=== PATIENT | male | born 1975 | race African-American/Black ===

== ENCOUNTER 2019-03-10 13:19 | Outpatient (CLI) | payer OTHER ==
--- NOTE | 2019-03-11 06:03 | MRI Report ---
Reason: LOW BACK PAIN Procedure Date: 03/10/2019 Accession Number: [id number] / [id number] Procedure: MRI - Lumbar Spine W/O CPT Code: FULL RESULT: EXAM: MRI LUMBAR SPINE WITHOUT CONTRAST EXAM DATE: 03/10/2019 02:10 PM. CLINICAL HISTORY: LOW BACK PAIN. Pain and numbness extending into the right leg. COMPARISON: None. TECHNIQUE: Multiplanar, multisequence T1-weighted and fluid-sensitive sequences of the lumbar spine from T12 to S1 without contrast. Other: None. FINDINGS: Spinal Canal: The conus terminates at L1. The conus medullaris and cauda equina are unremarkable. Alignment: No scoliosis or spondylolisthesis. Bone Marrow: Five [id number] lumbar vertebral bodies are assumed. No gross fractures or bone lesions. No bone marrow replacement. Disk Levels/Facets: T12-L1: Unremarkable. L1-L2: The disk is intact. The canal and the foramina are widely patent. L2-L3: The disk is intact. The canal and the foramina are widely patent. L3-L4: The disk is desiccated and narrowed. There is an anterior disk protrusion with minimal surrounding osteophytes. There is no significant posterior disk protrusion. The canal and the foramina are widely patent. L4-L5: The disk is intact. The canal and the foramina are widely patent. L5-S1: The disk is degenerated. There is a small right posterior paracentral disk protrusion with minimal extruded disk material. There is contiguity and mass-effect on the right S1 descending nerve root in the lateral recess. There is no central canal stenosis nor significant foraminal stenosis. Musculature: Normal. No edema or fatty atrophy. Other: The partially visualized retroperitoneum is unremarkable. IMPRESSION: 1. Right posterior paracentral disk protrusion with small amount of extruded disk material contiguous with and causing mass-effect on the right S1 descending nerve root in the lateral recess. 2. Degenerated L3-L4 disk. Comment: The following findings are so common in adults without low back pain that while we report their presence, they must be interpreted with caution and in the context of the clinical situation. (Reference Meccak et al, Spine 2001) Prevalence of findings in patients without low back pain: Disk degeneration (any evidence): 92% Disk desiccation/T2 signal loss: 83% Disk height loss: 56% Disk bulge: 64% Disk protrusion: 32% Annular tear/high intensity zone: 38% RADIA
== END 2019-03-10 13:20 | disposition home or self-care (01) ==
LOC: DI 13:19
DX: M51.36 Other intervertebral disc degeneration, lumbar region (principal); M51.27 Other intervertebral disc displacement, lumbosacral region; M51.37 Other intervertebral disc degeneration, lumbosacral region; M51.26 Other intervertebral disc displacement, lumbar region
CPT/HCPCS: 72148

== ENCOUNTER 2020-04-06 09:27 | Outpatient (CLI) | payer OTHER ==
[2020-04-06 10:50] VITALS: BP 124/84
--- NOTE | 2020-04-06 10:50 | SLEEP CARE CONSULTATION ---
Information from patient questionnaire entered by Lety Liu. I have reviewed and concur with the information entered by Lety Liu. This document represents the service I personally performed and the decisions made by me, Annabel Ortez ARNP. History of Present Illness Service Date and Time: 04/06/2020926 Reason for Visit: New patient Chief Complaint: reports: Unrefreshed sleep, Snoring (occasionally wake him up), Excessive daytime sleepiness, Observed pauses in breathing, Fatigue, Frequent awakenings at night, Other (Headaches in the morning and during the day) Duration of Symptoms: years Usual bedtime: 10-11 pm Time it takes to fall asleep: 2 min Snores at night: Yes Observed to quit breathing while asleep: Yes Sleeps alone due to snoring: No Number of times waking at night: 4 Reasons for waking at night: reports: Snoring. denies: Choking, Gasping for air, Pain, Bathroom Toss, Turn, or Twitch while sleeping: Yes Recalls having dreams: No Usually gets out of bed at: 5 am Feels refreshed in the morning: No Morning headache: Yes (DELEON 4 times a week; resolve by 11 after food and coffee) Sleepy or fatigued during the day: Yes Ever fallen asleep while driving: Yes Takes day naps: Yes Dreams during day naps: No Prior sleep studies: Yes Additional HPI information: He has had episodes of dreaming of not being able to breathe about 3 times a month last July/August, then tapered off about October. It has happened many times over the years since childhood, comes and goes. He feels he is conscious at the time and has to wake himself up by moving his legs. He has had 2 previous studies done, one in [place] and one in [place]. He was set up with an oral appliance that he states did help for a while but he feels the effectiveness has reduced. He also states he only uses this occasionally when his elbows him during the night for his snoring. He does experience headaches 4 times a week that usually resolve by 11 AM after eating and drinking coffee. - Parasomnia Symptoms Ever been unable to move upon waking from sleep: Yes (Jul/Aug frequent, then tapered off around Oct) Walks in sleep: No Talks in sleep: No Ever acted out dreams in sleep: Yes Ever felt weak in the knees when startled or emotional: Yes Bothered by creepy, crawly, restless sensations in legs: No Problems with memory or concentration: Yes Subjective Initial [place] Sleepiness Scale score: 20 (in 2020) Past Medical History Past Medical History: reports: Other (high cholesterol ). denies: Hypertension, Claustrophobia, Congestive Heart Failure, Diabetes, Stroke, Coronary Heart Disease, Insulin resistance, Arrythmia, Hypothyroidism, Anxiety, Depression, GERD Social History The patient's occupation is a Active . Patient is and lives in [place]. Have you smoked in the past 12 months: No Alcohol use: Yes Alcohol amount and frequency: occasionally Caffeine use: Yes Caffeine amount and frequency: occasionally Family History Family history of sleep disordered breathing: Yes (mom, dad, uncle) Family Hx Sleep Apnea: Mother: Snoring, Other: Sleep apnea - Treated (uncle) Allergies and Home Medications Drug allergies reviewed: Yes (NKDA) Home medication list reviewed: Yes (simvastatin, claritin) Review of Systems Weight gain over past 5 years: 15 Cardiovascular: denies: high blood pressure, palpitations, chest pain, irregular heart rate or pulse, leg or foot swelling, have to sleep sitting up Respiratory: denies: shortness of breath, wheeze, chronic cough Gastrointestinal: reports: heartburn, diarrhea Urinary: reports: urgency Neurological: reports: headaches. denies: seizure, head trauma, disorientation, speech dysfunction, gait or balance problems Psychiatric: denies: anxiety, depression, mood disorder Ear/Nose/Throat: reports: nasal congestion, sinus problems, nose bleeds, tonsillectomy, wisdom teeth removed. denies: dry mouth/throat, hoarseness, injury to nose Endocrine: denies: thyroid disease, sluggishness, too hot or cold, excessive thirst, increased appetite Musculoskeletal: denies: joint pain, back pain, muscle pain or cramping, mobility problems Immunologic: reports: sneezing, itching, allergies to food or environment (seasonal allergies) Physical Exam Blood Pressure: 124/84 Cuff size: long Heart Rate: 73 O2 Saturation: 98 Height: 5 ft 7 in Weight: 170 lb (gained 15 pound, muscle mass at first now a spare tire) Body Mass Index: 26.6 BMI Classification: Overweight Neck circumference: 16 (inches) HEENT: No craniofacial malformation Nostrils: patent to airflow Turbinates: boggy Septum: midline Mouth and throat: normal Soft palate: normal Hard palate: normal Uvula visualization: 100% Mallampati Class I Tongue: enlarged in size with teeth hensley on lateral edges Tonsils: absent bilaterally (uvula and tonsils removed in 1999) Chin and jaw: normal size and position Neck: normal w/o lymphadenopathy or thyromegaly Heart: regular rate and rhythm Lungs: clear bilaterally Impression and Plan 1. Suspected Obstructive Sleep Apnea-Hypopnea Syndrome, as suggested by a history of loud and irregular snoring, observed cessation of breath while asleep, morning headache, frequent awakening during the night, unrefreshed sleep, cognitive impairment, and excessive daytime sleepiness. Patient has had two previous studies. He brings in the one done in [place] and it does not show sleep apnea but does have 127 episodes of PLMS. He did not bring in his [place] study and this was requested for our records. He continues to have symptoms consistent with sleep apnea and I have ordered a new study to again rule this out due to recent weight gain. I recommend proceeding to polysomnography to confirm the diagnosis and to assess severity. If the patient has significant sleep disordered breathing, a manual CPAP titration study will also be performed to find the optimal treatment pressure. I informed the patient of what the sleep studies involve and after so me discussion, obtained agreement to proceed. The pathophysiology of obstructive sleep apnea-hypopnea syndrome was discussed with the patient and health risks of cardiovascular and cerebrovascular disease if not treated. Risks of drowsy driving discussed in detail and patient advised to avoid long distance driving and to test puller at the first sign of drowsiness. Patient agreed to plan. * Schedule polysomnography +- manual CPAP titration study and return in 1-2 weeks after the study to discuss result and initiate therapy. * Avoid long distance driving or driving when feeling sleepy. * Avoid alcohol, sedative and muscle relaxant around bedtime. * Obtain and bring [place] study to office for our records. * Use oral appliance for snoring/sleep more regularly. * Attempt to lose weight. * Review instructions provided by trained office staff on how to prepare for the sleep study. * Return for follow-up after sleep study completed. Visit Type: In Office Time Spent with Patient (minutes): 30 Provider Statement: I spent 100% of the Face to Face Visit with the patient with greater than 50% spent counseling the patient and coordination of care.
== END 2020-04-06 09:28 | disposition home or self-care (01) ==
LOC: SC 09:27
PROVIDERS: ATTEND Nurse Practitioner Family
DX: R06.83 Snoring (principal); R06.81 Apnea, not elsewhere classified; R51 Headache; G47.8 Other sleep disorders; R41.89 Other symptoms and signs involving cognitive functions and awareness; G47.10 Hypersomnia, unspecified; E66.3 Overweight; Z68.26 Body mass index [BMI] 26.0-26.9, adult
CPT/HCPCS: 99204; 99212

== ENCOUNTER 2020-04-26 19:24 | Outpatient (CLI) | payer OTHER | END 2020-04-26 19:25 | disposition home or self-care (01) | LOC: SC 19:24 | PROVIDERS: ATTEND Internal Medicine Pulmonary Disease | DX: G47.33 Obstructive sleep apnea (adult) (pediatric) (principal); G47.61 Periodic limb movement disorder; E66.3 Overweight; Z68.26 Body mass index [BMI] 26.0-26.9, adult | CPT/HCPCS: 95810 ==

== ENCOUNTER 2020-05-05 13:09 | Outpatient (CLI) | payer OTHER ==
--- NOTE | 2020-05-05 13:49 | SLEEP CARE CONSULTATION ---
Information from patient questionnaire entered by Lety Liu. I have reviewed and concur with the information entered by Lety Liu. This document represents the service I personally performed and the decisions made by , Annabel Ortez ARNP. History of Present Illness Service Date and Time: 05/05/2020 1309 Initial [place] Sleepiness Scale score: 20 (in 2020) Current [place] Sleepiness Scale score: 15 Additional HPI information: SIA HENDRICKS returns for follow up and results of the recently performed polysomnography. He was found to have mild obstructive sleep apnea with an AHI of 11.5 and yohana oxygen saturation of 80%. His supine AHI was 15.4 and his non- supine AHI 9.32. He had mild periodic leg movements that did not fragment his sleep. I explained the pathophysiology behind obstructive sleep apnea. We then spent quite a bit of time discussing different treatment options. For mild obstructive sleep apnea, surgery and oral appliance are alternatives to nasal CPAP therapy but in moderate or severe cases, nasal CPAP is the most effective and reliable treatment. Because apnea is primarily in supine position, then positional management therapy could be effective. Methods discussed such as positioning with pillows, using a T-shirt with tennis balls in the back, and shown commercial products that have a pillow format on back to prevent supine sleep. I reviewed the impact of weight changes on sleep apnea and strongly recommended losing weight. After some discussion, the patient opted to go with the nasal CPAP therapy. Nasal autoCPAP set at [id number] will be ordered with rationale explained. A manual titration study will be ordered if unable to find optimal pressure with office adjustments. I explained how CPAP machine works with sample devices [employer] Dream[employer] and ethology [id number] and what to expect when using the machine. Using CPAP every night in order to get used to it was emphasized. Patient advised to put CPAP mask on before getting into bed so as not to fall asleep without CPAP. To assist acclimation to CPAP use, it could also be used for a short time during day while reading or watching TV. The patient was instructed to call the CPAP supplier to discuss any mechanical problem that may occur. If the mask given is uncomfortable or is difficult to keep on through the night even with adjustment, contact the CPAP supplier as many will replace with another mask style if notified before 30 days. If snoring or perceives is not getting enough air or too much air from the machine, notify this office. [facility] patient education PAP tips reviewed and given to patient. Patient counseled not drink alcohol less than 4 hours before bedtime as it can increase snoring and apnea. Patient was cautioned about risks of drowsy driving until sleepiness symptoms resolve. Sleep Study - Results Type of Sleep Study: Polysomnography Prior sleep studies: Yes Polysomnography/Home Sleep Study results: IMPRESSION: The quality of the study is good. The patient had normal sleep efficiency. Except for mild sleep fragmentation, the sleep architecture was normal as well. Respiratory monitoring showed mild obstructive sleep apnea-hypopnea (AHI = 11.5) associated with frequent arousals, oxyhemoglobin desaturation and mild hypoxia (yohana oxygen saturation of 80%). The respiratory events occurred mainly during supine sleep (supine AHI = 15.4; non-supine = 9.32). Snore was loud in intensity. There was mild periodic leg movement of sleep not contributing to the sleep fragmentation. Cardiac rhythm was normal sinus rhythm without significant arrhythmia. No abnormal behavior (parasomnia) observed during the night. Allergies and Home Medications Drug allergies reviewed: Yes (NKDA) Home medication list reviewed: Yes (no changes) Review of Systems Review of systems same as previous: Yes (no changes) Physical Exam Heart Rate: 81 O2 Saturation: 98 Height: 5 ft 7 in Weight: 169 lb Body Mass Index: 26.4 BMI Classification: Overweight Impression and Plan 1. Obstructive Sleep Apnea-Hypopnea Syndrome, mild, with lowest oxygen saturation of 80%. Patient has tried oral appliances for snoring that did not work for him and he declined this treatment option as well as positional therapy (not going to be as effective due to non-supine AHI is elevated at 9.32) and surgery (he has had a tonsillectomy). He would like to try the CPAP therapy. Obviously this is the cause of the patients symptoms of unrefreshed sleep, morning headaches and excessive daytime sleepiness. Positive pressure therapy could benefit hypertension and heart arrhythmias. As mentioned above, the patient will be started on nasal autoCPAP therapy with pressure set at 4-15 cmH2 O. Compliance guidelines also reviewed. A copy of compliance guidelines will be given for reference at check out. Because the apnea is more severe supine, I instructed to avoid sleeping supine using pillow positioning until able to start CPAP use. * Nasal auto CPAP therapy, pressure at 4-15 cm H2O. * Attempt to lose weight. * Avoid alcohol consumption near bedtime. * Avoid supine sleep until using CPAP. * The patient is again cautioned about driving until sleepiness completely resolves. * Return one month after CPAP obtained. I will assess response to therapy and compliance at that time. Visit Type: In Office Time Spent with Patient (minutes): 22 Provider Statement: I spent 100% of the Face to Face Visit with the patient with greater than 50% spent counseling the patient and coordination of care.
== END 2020-05-05 13:10 | disposition home or self-care (01) ==
LOC: SC 13:09
PROVIDERS: ATTEND Nurse Practitioner Family
DX: G47.33 Obstructive sleep apnea (adult) (pediatric) (principal); E66.3 Overweight; Z68.26 Body mass index [BMI] 26.0-26.9, adult
CPT/HCPCS: 99212; 99213

== ENCOUNTER 2020-06-15 14:13 | Outpatient (CLI) | payer OTHER ==
--- NOTE | 2020-06-15 15:07 | SLEEP CARE CONSULTATION ---
Information from patient questionnaire entered by Iron Alegre. I have reviewed and concur with the information entered by Iron Alegre. This document represents the service I personally performed and the decisions made by , Annabel Ortez ARNP. History of Present Illness Service Date and Time: 06/15/2020 1413 Previous diagnosis: Mild, Obstructive Sleep Apnea-Hypopnea Syndrome AHI: 11.5 Reason for follow up: first compliance (05/15) Equipment type: CPAP Equipment obtained from: [employer] (just awaiting first shipment) Mask style: Full face Backup mask available: No (will keep current mask when replaced) Last cushion change: 1 month Prior sleep studies: Yes Year and Where: [facility] Type of Sleep Study: Polysomnography HPI additional information: SIA HENDRICKS was diagnosed to have mild, AHI 11.5, obstructive sleep apnea- hypopnea syndrome and returned today for CPAP therapy first compliance follow- up. Sleep Study - Results Prior sleep studies: Yes CPAP Compliance Data - Data Reviewed with Patient Average duration of nightly device use: 5 h 57 min Compliance rate %: 93 Current pressure setting (cmH2O): 4-20 Average residual AHI: 3.6 Central apnea: 2.5 Obstructive apnea: 0.5 Subjective Missed days of use due to: reports: family emergency Patient concerns: denies: aerophagia, mask discomfort, air blowing in eyes, mask leak noise, condensation in mask/hose, nasal congestion, dry mouth, nose, throat, epistaxis, other Observed to snore while using device: No Current pressure setting perceived as: comfortable On therapy, patient: reports: sleeping better, awakening more refreshed, being more awake and alert during the day, more rested overall, other (no more morning headaches). denies: drowsiness while driving Initial [place] Sleepiness Scale score: 20 (in 2020) Current [place] Sleepiness Scale score: 17 Allergies and Home Medications Drug allergies reviewed: Yes (NKDA) Home medication list reviewed: Yes (no changes) Review of Systems Review of systems same as previous: Yes (no changes) Physical Exam Heart Rate: 85 O2 Saturation: 98 Height: 5 ft 7 in Weight: 172 lb Body Mass Index: 26.9 BMI Classification: Overweight Impression and Plan 1. Obstructive Sleep Apnea-Hypopnea Syndrome, mild, with good treatment compliance and good apnea control. On CPAP therapy, the patient has better sleep quality and is more rested overall. He is really liking using the CPAP because he is sleeping better and does not feel he is having any issues with the mask. 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 I will adjust his pressure to 10-15 cm H2O since his 95% average pressure was 12.2 cm H2O and his peak pressure was 14.1 cm H2O. Patient's apnea severity and rationale for treatment to reduce apnea, improve sleep quality and reduce cardiovascular and cerebrovascular events was reviewed. I also reviewed the benefit of consistent device use of CPAP for his hypertension and heart arrhythmias. * Change auto CPAP pressure to 10-15 cmH2O * Notify me if snoring with mask or feeling that the pressure is too much or too little * Attempt to lose weight * Call this office if any problems using CPAP * Return for follow up in 1-2 months, or sooner if concerns arise Visit Type: In Office Location of Provider: Office Time Spent with Patient (minutes): 20 Provider Statement: I spent 100% of the Face to Face Visit with the patient with greater than 50% spent counseling the patient and coordination of care.
== END 2020-06-15 14:14 | disposition home or self-care (01) ==
LOC: SC 14:13
PROVIDERS: ATTEND Nurse Practitioner Family
DX: G47.33 Obstructive sleep apnea (adult) (pediatric) (principal); E66.3 Overweight; Z68.26 Body mass index [BMI] 26.0-26.9, adult
CPT/HCPCS: 99212; 99213

== ENCOUNTER 2020-07-02 11:04 | Outpatient (CLI) | payer OTHER ==
--- NOTE | 2020-07-02 10:19 | SLEEP CARE CONSULTATION ---
Information from patient questionnaire entered by Mami Quiroz. I have reviewed and concur with the information entered by Mami Quiroz. This document represents the service I personally performed and the decisions made by me, Annabel Ortez ARNP. History of Present Illness Service Date and Time: 07/02/2020 1000 Previous diagnosis: Mild, Obstructive Sleep Apnea-Hypopnea Syndrome AHI: 11.5 Reason for follow up: other (2 week with pressure change) Equipment type: CPAP Equipment obtained from: [employer] (getting supplies as needed) Mask style: Full face Backup mask available: Yes (other mask) Last cushion change: 5-6 weeks Prior sleep studies: Yes Year and Where: 04/2020 [facility] Type of Sleep Study: Polysomnography HPI additional information: SIA HENDRICKS was diagnosed to have mild, AHI 11.5, obstructive sleep apnea- hypopnea syndrome and returned today for CPAP therapy 2 week pressure change follow-up. Sleep Study - Results Type of Sleep Study: Polysomnography Prior sleep studies: Yes Year and Where: [facility] CPAP Compliance Data - Data Reviewed with Patient Average duration of nightly device use: 5 hours 46 minutes Compliance rate %: 97 Current pressure setting (cmH2O): 6-12 Average residual AHI: 3.5 Subjective Patient concerns: reports: condensation in mask/hose (mask). denies: aerophagia, mask discomfort, air blowing in eyes, mask leak noise, nasal congestion, dry mouth, nose, throat, epistaxis, other Observed to snore while using device: No Current pressure setting perceived as: comfortable On therapy, patient: reports: sleeping better, awakening more refreshed, being more awake and alert during the day, more rested overall. denies: drowsiness while driving Initial [place] Sleepiness Scale score: 20 (in 2020) Allergies and Home Medications Drug allergies reviewed: Yes (NKDA) Home medication list reviewed: Yes (no changes) Review of Systems Review of systems same as previous: Yes (no changes) Physical Exam Height: 5 ft 7 in Impression and Plan 1. Obstructive Sleep Apnea-Hypopnea Syndrome, mild, with good treatment compliance and good apnea control. On CPAP therapy, the patient has better sleep quality and is more rested overall. Patient has been having some condensation in the mask in the morning. I advised him to adjust his humidity setting lower or his heated hose higher to dry the tubing/mask and reduce condensation. Patient is doing well and the new pressure is comfortable without aerophagia. He has good apnea control at AHI 3.5. 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 I encouraged him to follow up when he returns in our office. Patient's apnea severity and rationale for treatment to reduce apnea, improve sleep quality and reduce cardiovascular and cerebrovascular events was reviewed. I also reviewed the benefit of consistent device use of CPAP for hypertension and arrhythmia. * Continue auto CPAP pressure at 6-12 cmH2O * Notify me if snoring with mask or feeling that the pressure is too much or too little * Attempt to lose weight * Call this office if any problems using CPAP * Return for follow up in 6 months, or sooner if concerns arise Visit Type: Telehealth Video Video Type: iCracked Patient agrees and consents to this telehealth visit type: Yes Patient agrees to have their insurance billed: Yes Time Spent with Patient (minutes): 15 Provider Statement: I spent 100% of the Telehealth Video Call with the patient with greater than 50% spent counseling the patient and coordination of care.
== END 2020-07-02 11:05 | disposition home or self-care (01) ==
LOC: SC 11:04
PROVIDERS: ATTEND Nurse Practitioner Family
DX: G47.33 Obstructive sleep apnea (adult) (pediatric) (principal)
CPT/HCPCS: 99212

== ENCOUNTER 2021-04-14 16:16 | Outpatient (CLI) | payer OTHER ==
--- NOTE | 2021-04-14 16:40 | SLEEP CARE CONSULTATION ---
Information from patient questionnaire entered by Lety Liu. I have reviewed and concur with the information entered by Lety Liu. This document represents the service I personally performed and the decisions made by , Annabel Ortez ARNP. History of Present Illness Service Date and Time: 04/14/2021 1616 Previous diagnosis: Mild, Obstructive Sleep Apnea-Hypopnea Syndrome AHI: 11.5 (in 2019) Reason for follow up: other (9 month) Equipment type: CPAP Equipment obtained from: [employer] (getting supplies as needed) Mask style: Full face Backup mask available: Yes (old mask) Last cushion change: 2 days ago Prior sleep studies: Yes Year and Where: 2019 - [facility] Type of Sleep Study: Polysomnography HPI additional information: SIA HENDRICKS was diagnosed to have mild, AHI 11.5, obstructive sleep apnea- hypopnea syndrome and returned today for CPAP therapy nine month follow-up. CPAP Compliance Data - Data Reviewed with Patient Average duration of nightly device use: 5 hr 28 min Compliance rate %: 66 (180 days)(73 last 30 days) Current pressure setting (cmH2O): 6-12 Humidity settin Average residual AHI: 2.5 Subjective Missed days of use due to: reports: mask issues Patient concerns: reports: aerophagia (every morning has bloating and flatus). denies: mask discomfort, air blowing in eyes, mask leak noise, condensation in mask/hose, nasal congestion, dry mouth, nose, throat, epistaxis, other Observed to snore while using device: No Current pressure setting perceived as: comfortable On therapy, patient: reports: sleeping better, awakening more refreshed, being more awake and alert during the day, more rested overall. denies: drowsiness while driving Initial [place] Sleepiness Scale score: 20 (in 2020) Current [place] Sleepiness Scale score: 19 Allergies and Home Medications Home medication list reviewed: Yes (Claritin) Review of Systems Review of systems same as previous: Yes (no changes) Physical Exam Heart Rate: 80 O2 Saturation: 98 Height: 5 ft 7 in Weight: 174 lb Body Mass Index: 27.2 BMI Classification: Overweight Impression and Plan 1. Obstructive Sleep Apnea-Hypopnea Syndrome, mild, with fair treatment compliance and good apnea control. On CPAP therapy, the patient has better sleep quality and is more rested overall. Patient had 66% compliance in last 180 days but did also show 73% in last 30 days which shows good compliance. Patient needs a larger size mask but has been having difficulty getting ahold of his DME to make the change. He was advised to try again and call office if unable to get through. He has had some bloating feeling in the mornings with flatus in first hour. To reduce symptoms of aerophagia, the CPAP pressure will be reduced to 6- 11 cmH2O. Patient advised to contact me if this does not reduce symptoms or if pressure change uncomfortable. Patient was encouraged to try to lose weight to improve his overall health. Patient's apnea severity and rationale for treatment to reduce apnea, improve sleep quality and reduce cardiovascular and cerebrovascular events was reviewed. I also reviewed the benefit of consistent device use of CPAP for hypertension and arrhythmia. He states that in May he is moving out of the area. He was advised to establish in new area with sleep provider for follow up in 1 year. He voiced understanding. * Change auto CPAP pressure to 6-11 cmH2O * Notify me if snoring with mask or feeling that the pressure is too much or too little * Attempt to lose weight * Call this office if any problems using CPAP * Return for follow up in 1 year, or sooner if concerns arise Counseling Topics: Spare mask, Weight loss health impact Visit Type: In Office Time Spent with Patient (minutes): 21 Provider Statement: I spent 100% of the Face to Face Visit with the patient with greater than 50% spent counseling the patient and coordination of care.
== END 2021-04-14 16:17 | disposition home or self-care (01) ==
LOC: SC 16:16
PROVIDERS: ATTEND Nurse Practitioner Family
DX: G47.33 Obstructive sleep apnea (adult) (pediatric) (principal); E66.3 Overweight; Z68.27 Body mass index [BMI] 27.0-27.9, adult
CPT/HCPCS: 99212; 99213